=== PATIENT | male | born 1965 | race Caucasian/White ===

== ENCOUNTER 2019-07-16 20:52 | Emergency (ER) | payer MEDICARE ==
[2019-07-16 22:01] VITALS: BP 127/68; PULSE 71
[2019-07-16] MEDS: HYDROmorphone 2 MG/ML SDV IVPUSH ONE (22:07)
--- NOTE | 2019-07-16 23:57 | CR ---
CLINICAL DATA: Fracture. LEFT LOWER LEG, 16 JULY 2019: There is an oblique lucency through the proximal fibula consistent with a nondisplaced fracture. No other acute abnormalities. Job: [id number] MTDD
--- NOTE | 2019-07-17 | CR ---
CLINICAL DATA: Fracture. LEFT ANKLE, 16 JULY 2019: There is a bimalleolar fracture subluxation of the ankle joint. There is an oblique fracture through the medial malleolus of the distal tibia. The distal fragment is displaced laterally with respect to the distal tibia. There is a displaced oblique fracture through the distal fibular metaphysis with lateral displacement and angulation of the distal fragment with respect to the proximal. The talus is subluxed laterally and anteriorly with respect to the distal tibia. No other acute abnormalities. Job: [id number] [facility]
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
== END 2019-07-16 22:25 ==
LOC: LB.ED 20:52
DX: S82.842A Displaced bimalleolar fracture of left lower leg, initial encounter for closed fracture (principal); S82.832A Other fracture of upper and lower end of left fibula, initial encounter for closed fracture; W19.XXXA Unspecified fall, initial encounter
CPT/HCPCS: 73590-LT; 73600-LT; 96374; 99283; 99285-25; A0425; A0429; J1170